=== PATIENT | male | born 1990 | race Caucasian/White ===

== ENCOUNTER 2023-12-17 20:22 | Emergency (ER) | payer BC, SELFPAY ==
[2023-12-17 20:33] VITALS: BP 151/74; PULSE 78; RESP 16; TEMP 37.3; O2SAT 97; BMI 26.4
--- NOTE | 2023-12-17 22:24 | ED.LOWEXIN ---
HPI - Extremity Injury (Lower) General Chief Complaint: Extremity Injury, Lower Stated Complaint: rt knee injury from hiking Time Seen by Provider: 12/17/23 22:24 Source: patient Mode of arrival: Ambulatory History of Present Illness HPI Narrative: Patient 33-year-old male who presents today with right knee injury. He reports that he was hiking out on [facility] he jumped onto a log and he felt a pop. He came back down immediately felt like it was unstable. He needed assistance walking down from the hike felt like it was going to give out. No numbness or tingling. He has not yet taken anything for pain but pain seems to be pretty well-controlled. But overall he feels like his knee is very on stable. Related Data Previous Rx's Medication Instructions Recorded hydrocodone 5 mg-acetaminophen 325 1 tab PO Q6H PRN pain #10 tabs 12/17/23 mg tablet Allergies Allergy/AdvReac Type Severity Reaction Status Date / Time No Known Drug Allergies Allergy Verified 12/17/23 20:33 Patient History Social History Smoking Status: Never smoker Smoking Status: Never smoker Substance Use Type: does not use Exam Initial Vital Signs Initial Vital Signs: Vital Signs Temperature 99.2 F 12/17/23 20:33 Pulse Rate 78 12/17/23 20:33 Respiratory Rate 16 12/17/23 20:33 Blood Pressure 151/74 H 12/17/23 20:33 Pulse Oximetry 97 12/17/23 20:33 Oxygen Delivery Method Room Air 12/17/23 20:33 GENERAL: Well-appearing, well-nourished and in no acute distress. CARDIOVASCULAR: peripheral pulses in tact, cap refill <2 sec RESPIRATORY: No respiratory distress, speaks in full sentences without difficulty EXTREMITIES: Normal range of motion, no clubbing or edema. Neurovascularly intact Right knee stable with anterior drawer mild swelling distal pedal pulse intact Achilles intact, he can extend but prefers a flexed position NEUROLOGICAL: Cranial nerves II through XII grossly intact. Normal gait and speech. SKIN: Warm, dry, no petechiae, no rashes or lesions. Course Orders Ordered: Discontinued Medications Hydrocodone Bitart/Acetaminophen (Hydrocodone/Acet 5/325 Prepack) 1 bottle MISC DIRECTED ONE Stop: 12/17/23 22:34 Last Admin: 12/17/23 22:53 Dose: Not Given Documented By: CHRIS Vital Signs Vital signs: Vital Signs - 8 hr 12/17/23 20:33 Temperature 99.2 F Pulse Rate 78 Respiratory Rate 16 Blood Pressure 151/74 H Pulse Oximetry 97 Oxygen Delivery Method Room Air MDM - Extremity Injury (Lower) MDM Narrative Medical decision making narrative: Patient healthy 33-year-old male who presents today with right knee injury and instability. He did hear a pop. I do suspect an ACL injury. He does not want or need an x-ray. He is given knee brace crutches and pain medication. Recommended outpatient MRI. He lives in [place]. Supportive care at this time. Discharge Plan Departure Patient Disposition: Home Clinical Impression: Knee sprain Instructions: DI for Knee Sprain Activity Restrictions/Additional Instructions: *You have been diagnosed with suspect ACL rupture or tear *What to do: I do recommend that you go to orthopedics and get an MRI urgently. Wear a knee brace while active and sleeping. Use crutches as needed elevate and ice *Continue to take medications as directed Motrin 600 mg every 6 hours if needed for [id number] pain [place] 1 tablet every 6 hours only if needed for severe pain or at night to help with sleep *Follow up with your primary care provider in 2-3 days or call [phone] I do recommend follow-up with orthopedics for outpatient MRI *Return to ER if you should have increasing pain swelling numbness tingling weakness or any new, worsening or concerning symptoms CONTROLLED SUBSTANCE DISCHARGE (Narcotoic/benzodiazepine/Flexeril/Phenergan) 1. You have been prescribed narcotic medications, it does have acetaminophen/Tylenol/paracetamol in it, DO NOT TAKE MORE THAN 4,00mg in 24 hours of Tylenol. TRAMADOL DOES NOT CONTAIN TYLENOL 2. Please understand that we cannot provide further refills of narcotics, benzodiazepines or controlled substances through the ED and her pain management will need to be through your provider. 3. While on these medications you cannot drive or operate heavy machinery. 4. You cannot sign legal documents or perform any duties such as this. 5. As long as you're taking opiate pain medications he should also be taking a stool softener such as Colace, Dulcolax, MiraLAX or prune juice, to help avoid constipation. Prescriptions: New hydrocodone-acetaminophen 5-325 mg tablet 1 tab PO Q6H PRN (Reason: pain) Qty: 10 0RF Stand Alone Forms: Patient Portal/API
== END 2023-12-17 22:58 | disposition home or self-care (01) ==
PROVIDERS: Emergency Provider Emergency Medicine
DX: S83.91XA Sprain of unspecified site of right knee, initial encounter (principal); X58.XXXA Exposure to other specified factors, initial encounter
CPT/HCPCS: 99283